=== PATIENT | male | born 1955 | race Caucasian/White ===

== ENCOUNTER 2016-11-01 10:39 | Day surgery (SDC) | payer BC ==
[~2016-11-01 10:39] MED LIST: Buffered Lidocaine 1% SYR 3ML* 3 ML/SYR SYRINGE INTRADERM ONE
[2016-11-01] MEDS ORDERED: Propofol* 10 MG/ML 20 ML BTL IV PUSH ONE (12:13)
[2016-11-01] MEDS ORDERED: Succinylcholine* 20 MG/ML 10 ML VIAL ONE (12:13)
[2016-11-01] MEDS ORDERED: Atracurium* 10 MG/ML 10 ML VIAL ONE (12:13)
[2016-11-01] MEDS ORDERED: fentaNYL* 50 MCG/ML 2 ML VIAL (100 MCG VIAL) ONE (12:13)
[2016-11-01] MEDS ORDERED: Midazolam* 1 MG/ML 5 ML VIAL (5 MG) ONE (12:13)
[2016-11-01] MEDS ORDERED: Ondansetron INJ* 2 MG/ML VIAL IV PRN (13:11)
[2016-11-01] MEDS ORDERED: DiMENhydriNATE IV* 50 MG/ML VIAL IV PUSH PRN (13:11)
[2016-11-01] MEDS ORDERED: fentaNYL* 50 MCG/ML 2 ML VIAL (100 MCG VIAL) IV PRN (13:11)
[2016-11-01] MEDS ORDERED: HYDROmorphone INJ* 1 MG/ML CARPUJECT SYRINGE IV PRN (13:11)
[2016-11-01] MEDS ORDERED: Ibuprofen PED LIQ* 100 MG/5 ML UDC ONE (13:52)
[2016-11-01 14:05] VITALS: BP 139/100
--- NOTE | 2016-11-02 04:38 | PRO ---
PROCEDURE REPORT: DATE OF PROCEDURE: 11/01/16 [facility] PROCEDURE: EGD. INDICATION: Dysphagia, pharyngoesophageal trauma, Zenker's diverticulum, I was asked by the patient's ENT surgeon to scope the patient and prior to his surgery and leave behind a guidewire. MEDICATIONS GIVEN: Per the anesthesia staff. DESCRIPTION OF THE PROCEDURE: After the EGD procedure including the risks, benefits, and alternatives, not limited to perforation, surgery, and/or were explained to Mr. Berrios, written consent was then obtained. Medication was given by the anesthesia staff and a bite block was placed between the teeth. An Olympus gastroscope was then inserted into the patient's mouth, advanced down the esophagus, into the stomach, and into the distal duodenum. Intubating his upper esophageal sphincter was slightly difficult. The patient does have a very small mouth and he already had an endotracheal tube in place. I was able to gently tease the scope into the back of the patient's mouth and down to his epiglottis. I was able to find the lumen of the patient's upper esophageal sphincter and intubate it. The scope was advanced down the esophagus , into the stomach, into the duodenal bulb. No abnormalities were seen. I then used an ERCP wire, placed it through the scope with the blunt, soft, flexible end first and placed it in the lumen of the patient's stomach. I then slowly withdrew the scope and slightly advanced to the guidewire. The scope was withdrawn from the patient. The guidewire was left in place and was taped to the side of the patient's face at the request of the surgical staff. The patient tolerated the procedure well and returned over to the care of the anesthesiologist and the surgical staff. IMPRESSION: 1. Complete upper endoscopy into the duodenum with placement of guidewire. 2. Normal upper endoscopy. 3. Placement of guidewire into the patient's stomach to be used by the surgical staff. [id number]/[facility] #: [id number] MANUEL
--- NOTE | 2016-11-02 04:47 | OP ---
DATE OF OPERATION: 11/01/16 DATE OF : 59 SURGEON: Kurt Dos Santos MD. MARINE STEAMFITTER: Lobo Fuller MD ANESTHESIOLOGIST: Major Oliver MD The patient was brought to the operating room for an EGD by Dr. Fuller and followed by endoscopic stapling of his Zenker's diverticulum. The patient had a significant amount of trismus with difficult intubation, even difficulty with the esophagoscopy with a flexible scope per Dr. Fuller, and I did not feel that I could safely insert a diverticuloscope into his mouth without severe risk of breaking off some teeth; and, therefore, that portion of the procedure was aborted. [id number]/[facility] #: [id number] MTDD
== END 2016-11-01 14:44 | disposition home or self-care (01) ==
LOC: OR 10:39
PROVIDERS: ATTEND Otolaryngology
DX: K22.5 Diverticulum of esophagus, acquired (principal); K21.9 Gastro-esophageal reflux disease without esophagitis
CPT/HCPCS: J0330; J2250; J2704; J3010

== ENCOUNTER 2018-09-07 07:08 | Emergency (ER) | payer BC ==
[2018-09-07 07:21] VITALS: BP 164/88
--- NOTE | 2018-09-07 07:52 | ED ---
Back Pain - HPI Summary HPI Summary: 62 yo white male presents with left sided LBP that started 3 days ago after a work out at the gym. Pain does not radiates, denies numbness and tingling. Not better with ibuprofen. Pain severity started at 2-3, and goes up to 5-6 with ambulation. Denies any urinary sx - History of Current Complaint Chief Complaint: UCBackPain Stated Complaint: BACK PAIN Time Seen by Provider: 09/07/18 07:27 Hx Obtained From: Patient Onset/Duration: Sudden Onset, Lasting Days Onset/Duration: Started Days Ago Timing: Intermittent Severity Initially: Moderate Severity Currently: Moderate Pain Intensity: 4 Character: Throbbing, Stiffness Aggravating Symptom(s): Movement, Lifting, Bending, Walking - Allergies/Home Medications Allergies/Adverse Reactions: Allergies Allergy/AdvReac Type Severity Reaction Status Date / Time No Known Allergies Allergy Verified 09/07/18 07:20 Home Medications: Home Medications Acetaminophen 650 mg PO ONCE PRN 09/07/18 [History Confirmed 09/07/18] Cyanocobalamin (Vitamin B-12) [Vitamin B-12] 1,000 mcg PO DAILY 09/07/18 [ History Confirmed 09/07/18] Ibuprofen 800 mg PO ONCE PRN 09/07/18 [History Confirmed 09/07/18] PMH/Surg Hx/FS Hx/Imm Hx GI History: Reports: Hx Gastroesophageal Reflux Disease, Hx Hiatal Hernia, Other GI Disorders - Zenker's diverticulum Sensory History: Reports: Hx Contacts or Glasses - reading Denies: Hx Hearing Aid Opthamlomology History: Reports: Hx Contacts or Glasses - reading - Cancer History Hx Chemotherapy: No - Surgical History Surgery Procedure, Year, and Place: tonsillectomy 12-13 years old Hx Anesthesia Reactions: No Infectious Disease History: No Infectious Disease History: Denies: Traveled Outside the [place] in Last 30 Days - Social History Alcohol Use: Occasionally Substance Use Type: Reports: None Smoking Status (MU): Light Every Day Tobacco Smoker Type: eCigarettes Amount Used/How Often: vapes every day Review of Systems Constitutional: Negative Eyes: Negative ENT: Negative Cardiovascular: Negative Respiratory: Negative Gastrointestinal: Negative Genitourinary: Negative Musculoskeletal: Other - see HPI Skin: Negative Neurological: Negative All Other Systems Reviewed And Are Negative: Yes Physical Exam - Summary Physical Exam Summary: Appearance: Positive: Well-Appearing Skin: Positive: Warm Head/Face: Positive: Normal Head/Face Inspection Eyes: Positive: EOMI, MALATHI ENT: Positive: Hearing grossly normal, Pharynx normal, TMs normal Neck: Positive: Supple, No Lymphadenopathy Respiratory/Lung Sounds: Positive: Clear to Auscultation Cardiovascular: Positive: RRR, S1, S2 Abdomen Description: Positive: Nontender, Soft Musculoskeletal: Positive: Left paraspinal muscle tenderness in left upper buttock and L4-5 region without radiculopathy Neurological: Positive: CN Intact II-III Psychiatric:Positive: Normal Vital Signs On Initial Exam: Initial Vitals Temp Pulse Resp BP Pulse Ox 36.8 C 71 18 164/88 99 09/07/18 07:15 09/07/18 07:15 09/07/18 07:15 09/07/18 07:15 09/07/18 07:15 Diagnostics - Vital Signs Vital Signs Temp Pulse Resp BP Pulse Ox 09/07/18 07:15 36.8 C 71 18 164/88 99 - Laboratory Lab Results: Lab Results 09/07/18 Range/Units 07:36 POC Urine Color Yellow POC Urine Clarity Clear POC Urine pH 7.0 (5-9) POC Ur Specif [place] 1.010 (1.010-1.030) POC Urine Protein Negative (Negative) POC Ur Glucose (UA) Negative (Negative) POC Urine Ketones Negative (Negative) POC Urine Blood Negative (Negative) POC Urine Nitrite Negative (Negative) POC Urine Bilirubin Negative (Negative) POC Urine Urobilinogen 0.2 (Negative) POC U Leukocyte Esteras Negative (Negative) Lab Statement: Any lab studies that have been ordered have been reviewed, and results considered in the medical decision making process. Back Pain Course/Dx - Course Assessment/Plan: LBP- XR of lumbar spine neg for fx but disc narrowing in L1-2 and 2-3, spondylosis. Naproxen, refrain from back excercises x 1 week - Diagnoses Provider Diagnoses: Muscle spasm of back Discharge - Sign-Out/Discharge Documenting (check all that apply): Patient Departure All imaging exams completed and their final reports reviewed: Yes - Discharge Plan Condition: Stable Disposition: HOME Prescriptions: Naproxen [Naproxen 500 mg tab] 500 mg PO BID PRN 10 Days #20 tablet.dr BELLAMY Reason: Pain Patient Education Materials: Muscle Spasm (ED) Referrals: En Silva MD [Primary Care Provider] - Additional Instructions: as tolerated, NO back excercises for one week - Billing Disposition and Condition Condition: STABLE Disposition: Home
== END 2018-09-07 08:29 | disposition home or self-care (01) ==
LOC: UCEAST 07:08
DX: M62.830 Muscle spasm of back (principal); F17.210 Nicotine dependence, cigarettes, uncomplicated
CPT/HCPCS: 72110; 81003; 99212; G0463

== ENCOUNTER 2019-06-23 06:38 | Inpatient (IN) | payer BC ==
[~2019-06-23 06:38] MED LIST changes: -Buffered Lidocaine 1% SYR 3ML* 3 ML/SYR SYRINGE INTRADERM ONE; +Buffered Lidocaine 1% SYRIN* 1 ML/SYRINGE INTRADERM ONE
[2019-06-23] MEDS: Lactated Ringers 1000 ML Bag* 1,000 ML IV SCH ×3 (08:20→17:04)
[2019-06-23] MEDS ORDERED: Succinylcholine* 20 MG/ML 10 ML VIAL ONE (08:34)
[2019-06-23] MEDS ORDERED: ceFAZolin 2 GM in NS PREMIX(*) 2 GM/100 ML BAG IVPB ONE (08:34)
[2019-06-23] MEDS ORDERED: Propofol* 10 MG/ML 20 ML BTL ONE (08:34)
[2019-06-23] MEDS ORDERED: Lidocaine 2% PF * 5 ML VIAL ONE (08:34)
[2019-06-23] MEDS ORDERED: fentaNYL* 50 MCG/ML 2 ML VIAL (100 MCG VIAL) ONE (08:36)
[2019-06-23] MEDS ORDERED: Lidocaine 4% TOPICAL* 50 ML TOP.SOLN ONE (08:36)
[2019-06-23] MEDS ORDERED: Midazolam* 1 MG/ML 2 ML VIAL (2 MG) ONE (08:36)
[2019-06-23] MEDS ORDERED: Oxymetazoline 0.05% NASAL SPR* 15 ML BTL ONE (08:36)
[2019-06-23] MEDS ORDERED: EPINEPHRINE 1 MG/ML 1 ML VIAL ONE (08:36)
[2019-06-23] MEDS ORDERED: Lidocaine 1% w EPI 1:100,000* MDV 20 ML VIAL ONE ×2 (08:37→09:47)
[2019-06-23] MEDS ORDERED: Rocuronium* 10 MG/ML VIAL ONE (08:56)
[2019-06-23] MEDS ORDERED: metroNIDAZOLE IV 500 MG/100ML* 500 MG/100 ML BAG IVPB ONE (09:00)
[2019-06-23] MEDS ORDERED: Metoclopramide IV* 5 MG/ML 2 ML VIAL ONE (09:04)
[2019-06-23] MEDS ORDERED: Dexamethasone IV* 4 MG/ML 1 ML (4 MG) ONE (09:04)
[2019-06-23] MEDS ORDERED: Ondansetron INJ* 2 MG/ML VIAL ONE (09:04)
[2019-06-23] MEDS ORDERED: Ketorolac INJ* 30 MG/ML 1 ML VIAL ONE (09:04)
[2019-06-23] MEDS ORDERED: Remifentanil* 2 MG VIAL ONE (09:07)
[2019-06-23] MEDS ORDERED: Acetaminophen TAB* 325 MG PO PRN (09:22)
[2019-06-23] MEDS ORDERED: DiMENhydriNATE IV* 50 MG/ML VIAL IV PUSH PRN (09:22)
[2019-06-23] MEDS ORDERED: Naloxone* 0.4 MG/ML 1 ML VIAL IV PRN (09:22)
[2019-06-23] MEDS ORDERED: oxyCODONE TAB* 5 MG TAB PO PRN (09:22)
[2019-06-23] MEDS ORDERED: fentaNYL* 50 MCG/ML 2 ML VIAL (100 MCG VIAL) IV PRN (09:22)
[2019-06-23] MEDS ORDERED: EPHEDrine (Pressors)* 50 MG/ML VIAL ONE (09:40)
[2019-06-23] MEDS ORDERED: Bacitracin OINTMENT* 0.5% 0.5 oz TUBE ONE (11:34)
[2019-06-23] MEDS ORDERED: HYDROmorphone INJ1* 1 MG/ML SYRINGE ONE (12:15)
[2019-06-23] MEDS ORDERED: Labetalol IV* 5 MG/ML 20 ML VIAL ONE (12:45)
[2019-06-23] MEDS ORDERED: Naloxone* 0.4 MG/ML 1 ML VIAL ONE (12:53)
[2019-06-23] MEDS ORDERED: hydrALAZINE IV* 20 MG/ML VIAL ONE (13:22)
[2019-06-23] MEDS ORDERED: Ondansetron INJ* 2 MG/ML VIAL IV PRN (14:19)
[2019-06-23] MEDS ORDERED: oxyCODONE ORAL.SOLN* 5 MG/5 ML UDC PRN (14:19)
[2019-06-23] MEDS ORDERED: Ondansetron ODT TAB* 4 MG PO PRN (14:20)
[2019-06-23] MEDS: Morphine INJ* 2 MG/ML 1 ML SYRINGE (TWO MG - NEW SYRINGE VERSION) IV PRN ×2 (14:38→21:17)
[2019-06-23 15:05] LABS: Hematocrit 49 % (42-52); Hemoglobin 16.4 g/dL (14.0-18.0); Mean Corpuscular HGB Conc 33 g/dL (31-36); Mean Corpuscular Hemoglobin 32 pg (27-31); Mean Corpuscular Volume 95 fL (80-94); Mean Platelet Volume 8.7 fL (7.4-10.4); Platelet Count 172 10^3/uL (150-450); Red Blood Count 5.16 10^6 /uL (4.18-5.48); Red Cell Distribution Width 13 % (10-15); White Blood Count 14.7 10^3/uL (3.5-10.8)
--- NOTE | 2019-06-23 15:32 | PN ---
PROGRESS NOTE: DATE OF SERVICE: 06/23/19 HISTORY: The patient underwent an excision of a Zenker's diverticulum and cricopharyngeal myotomy. This was an open procedure through the neck. During the myotomy, an opening was seen through the esophageal mucosa into the esophagus. This was oversewn and then sealed off with some Tisseel, but this does put him at high risk for infection which can travel down into the mediastinitis and cause devastating complication. Therefore, an NG tube was placed through his nose at the end of the procedure and we are admitting him for observation for risk of infection and to begin tube feeds. He will spend the first night in the ICU. I have spoken to the hospitalist. We are going to give him a couple more doses of intravenous antibiotics. I also spoke to the life skills worker about getting the tube feed started. [id number]/[facility] #: [id number] MANUEL
--- NOTE | 2019-06-23 15:42 | CONSULT ---
Consult Consult: Consultation Note -- Critical Care Requesting Physician: Dr Dos Santos Reason for consult: airway monitoring Limitations in history/physical: none Date of consult: 06/23/2019 HPI: 63y M w/pmhx of GERD, Zenkers Diverticulum; patient comes for elective surgery for stappling of zenkers diverticulum. Today he is s/p stappling via left approach. NO significant intraop events noted. Post op he is in ICU, left LEONCIO drain+. Mild pain+. No change in breathing, no stridor. Some soreness in swallowing. Afebrile, HR 80s, BP 130-150s. ED/floor Course: as above ROS: negative except for pertinent positives mentioned above PMHx: GERD, Zenkers Diverticulum PSHx: tonsillectomy Family History: heart disease, hearing loss Social History: Alcohol-occassional, Smoking-denies, Drug use-denies; Job- civil attorney Allergies: Allergies Allergy/AdvReac Type Severity Reaction Status Date / Time No Known Allergies Allergy Verified 06/23/19 07:36 Home Medications: Omeprazole 20 mg PO QAM 06/07/13 [History Confirmed 06/23/19] Krill Oil 1 tab PO QAM 10/25/16 [History Confirmed 06/23/19] Multivitamin [Multivitamins] 1 cap PO QAM 10/25/16 [History Confirmed 06/23/19] Tamoxifen TAB* [Nolvadex 10 MG*] 20 mg PO WEEKLY 10/25/16 [History Confirmed 06/03] Cyanocobalamin (Vitamin B-12) [Vitamin B-12] 1,000 mcg PO QAM 09/07/18 [History Confirmed 06/23/19] Bio-Identical Hormone Replacem 1 dose .SEE ORDER SEE INSTRUCTIONS 09/23/18 [ History Confirmed 06/23/19] Ibuprofen [Ibu-200] 800 mg PO BID PRN 03/23/19 [History Confirmed 06/23/19] Naproxen Sodium [Aleve] 220 mg PO BID PRN 03/23/19 [History Confirmed 06/23/19] 5-Hydroxytryptophan (5-Htp) [5-Htp] 100 mg PO QAM 06/22/19 [History Confirmed ] 7-Keto Dhea 2 tab PO QAM 06/22/19 [History Confirmed 06/23/19] Ascorbic Acid TAB* [Vitamin C TAB*] 500 mg PO QAM 06/22/19 [History Confirmed 06/23/19] Loratadine/Pseudoephedrine [Claritin-D 12 Hour] 1 tab PO ONCE PRN 06/22/19 [ History Confirmed 06/23/19] Tele: NSR Vitals: Vital Signs Temp 98.4 F 06/23/19 13:55 Pulse 80 06/23/19 15:15 Resp 18 06/23/19 15:15 BP 168/92 06/23/19 15:15 Pulse Ox 94 06/23/19 15:15 Intake & Output 06/22/19 06/23/19 06/23/19 18:59 06:59 18:59 Output Total 400 Balance -400 Weight 86.636 kg Output: Urine 400 O2/Vent: NC Infusions: heplock Current Medications: Acetaminophen (Tylenol Adult Liq*) 650 mg G TUBE Q4H PRN PRN Reason: PAIN - MILD Lactated Ringer's (Lactated Ringers 1000 Ml Bag*) 1,000 mls @ 125 mls/hr IV PER RATE [facility] Last Admin: 06/23/19 14:38 Dose: 125 mls/hr Cefazolin Sodium 1 gm/ Sodium (Chloride) 50 mls @ 200 mls/hr IVPB Q8H [facility] Metronidazole/Sodium Chloride (Flagyl 500 Mg Ivpb*) 500 mg in 100 mls @ 100 mls /hr IVPB Q8H [facility] Ibuprofen (Motrin Liq Adult*) 800 mg G TUBE Q8H PRN PRN Reason: PAIN - MILD Lansoprazole (Lansoprazole Susp* Oralsyr) 30 mg G TUBE DAILY [facility] Morphine Sulfate (Morphine Inj (Syringe))*) 2 mg IV Q2H PRN PRN Reason: PAIN - MODERATE Last Admin: 06/23/19 14:38 Dose: 2 mg Ondansetron HCl (Zofran Inj*) 8 mg IV Q6H PRN PRN Reason: NAUSEA/VOMITING Ondansetron HCl (Zofran Odt Tab*) 4 mg PO Q6H PRN PRN Reason: NAUSEA/VOMITING Oxycodone HCl (Oxycodone Oral.Soln*) 5 mg .SEE ORDER Q4H PRN PRN Reason: PAIN - MILD Oxycodone HCl (Oxycodone Oral.Soln*) 10 mg .SEE ORDER Q4H PRN PRN Reason: PAIN - MODERATE Physical Exam: Constitutional: awake, alert, no distress, no diaphoresis Head: normocephalic, atraumatic Eyes: no pallor, no icterus ENT: moist mucous membranes Neck: soft, supple, no jvd, no stridor; left LEONCIO+; surgical site intact+ CVS: normal rate, regular, no murmur Chest/Resp: bilateral air entry, no rhales, no wheeze, no rhonchi, no acc muscle use Abdomen/GI: soft, nontender, nondistended, BS+ Ext/Msk: warm, pulses+, no edema Skin: intact, warm Neuro: awake, alert, orientedx3, moving all extremities, no gross focal deficit Psych: normal affect Labs: Laboratory Results - last 24 hr 06/23/19 14:54 WBC 14.7 H RBC 5.16 Hgb 16.4 Hct 49 MCV 95 H MCH 32 H MCHC 33 RDW 13 Plt Count 172 MPV 8.7 Imaging: cr 06/23 - NGT in stomach+ Assessment: 63y M w/pmhx of GERD, Zenkers Diverticulum; patient comes for elective surgery for stappling of zenkers diverticulum. Today he is s/p stappling via left approach. NO significant intraop events noted. Post op he is in ICU, left LEONCIO drain+. Mild pain+. No change in breathing, no stridor. Some soreness in swallowing. Afebrile, HR 80s, BP 130-150s. -Zenkers diverticulum s/p open stappling - 06/23 -GERD Plan: Neuro- -Delirium prec; avoid BDZ CVS- -BP and HR stable -ordered for LR 125cc/hr -Maintain MAP>65 Resp- -NC, no distress -CXR 06/23 without focal process; NGT in place -monitor for stridor -monitor for swelling or bleeding from NGT -Wean Fio2 to keep sat>92% -Bronchodilators PRN, Aspiration prec -discussed plan with ENT; airway monitorign overnight; plan for possible discharge tomorrow if stable, no fevers or resp issues. ID- [email or web address] 14 post op. -start post op abx ancef and flagyl GI- -NPO -NGT in place -nutrition consult for home TF; plan to start tomorrow -GI prophylaxis - lansoprazole via ngt Renal- -LR infusion 125cc/hr -strict I/O, replete to keep K>4, Mg>2 -gonzalez as indicated Heme- monitor for bleeding from LEONCIO site Endo- Maintain BG<200, insulin protocol as needed Musculsk- pressure ulcer prophylaxis. Bedrest. Wounds- none Nutrition- NPO today DVT prophylaxis: SCD GI prophylaxis: ppi Central Line: no Arterial Line: no Gonzalez Cathetor: no Disposition: Patient requires Critical Care/ICU for for airway monitoring Patient Clinical Status: stable Code Status: full code Christophe Stout MD Engraver Machine (Electronically Signed)
[2019-06-23 15:43] LABS: ALT 29 U/L (7-52); Albumin 3.9 g/dL (3.2-5.2); Albumin/Globulin Ratio 1.9 (1-3); Alkaline Phosphatase 45 U/L (34-104); BUN/Creatinine Ratio 14.1 (8-20); Blood Urea Nitrogen 19 mg/dL (6-24); CO2 Carbon Dioxide 23 mmol/L (22-32); Calcium 8.9 mg/dL (8.6-10.3); Chloride 109 mmol/L (101-111); EGFR Non-African American 53.7 (>60); Globulin 2.1 g/dL (2-4); Glucose 133 mg/dL (70-100); Phosphorus 2.9 mg/dL (2.5-5.0); Sodium 140 mmol/L (135-145)
[2019-06-23] MEDS: Acetaminophen ADULT LIQ* 650 MG/20.3 ML UDC G TUBE PRN ×2 (15:49→21:33)
[2019-06-23 16:00] LABS: Anion Gap 8 mmol/L (2-11)
[2019-06-23] MEDS ORDERED: ceFAZolin 1 GM ADVAN(*) 1 GM in NS 0.9% 50 ML* 50 ML IVPB SCH (16:00)
[2019-06-23 17:09] LABS: ABS Lymphocytes 0.4 10^3/ul (1.0-4.8); ABS Monocytes 0.3 10^3/ul (0-0.8); Eosinophil % 0.1 %; Lymphocyte % 2.7 %
[2019-06-23] MEDS: metroNIDAZOLE IV 500 MG/100ML* 500 MG/100 ML BAG IVPB SCH (17:44)
[2019-06-23] MEDS ORDERED: NS 0.9% 500 ML* 500 ML IV ONE (18:18)
[2019-06-23] MEDS: oxyCODONE ORAL.SOLN* 5 MG/5 ML UDC PRN ×2 (19:12→23:45)
[2019-06-23 19:38] LABS: Potassium Redraw 4.5 mmol/L (3.5-5.0)
--- NOTE | 2019-06-23 21:55 | OP ---
DATE OF OPERATION: 06/23/19 - [facility] DATE OF : 59 SURGEON: Kurt Dos Santos MD PRE-OP DIAGNOSIS: Zenker's diverticulum. POST-OP DIAGNOSIS: Zenker's diverticulum. OPERATIVE PROCEDURE: Initially an attempt at endoscopic stapling of Zenker's diverticulum, which we were not able to perform; therefore, an open excision of Zenker's diverticulum with cricopharyngeal myotomy was performed under general endotracheal anesthesia. COMPLICATIONS: He had a small esophageal opening, which was oversewed. DISPOSITION: Good. ESTIMATED BLOOD LOSS: 20 mL. DRAINS: LEONCIO drain x1. DESCRIPTION OF PROCEDURE: The patient was taken to the operating room and placed in the supine position on the operating table. General anesthesia was induced and he was orotracheally intubated. Initially, we attempted an endoscopic stapling of the Zenker's diverticulum, put a tooth guard on his upper teeth and unfortunately with multiple attempts at trying to cannulate the Zenker's by following a NG tube into the esophagus using a side to try to get his mouth open. His trismus was too significant to allow us to get the diverticuloscope deep enough to allow us to do the endoscopic stapling; therefore, he was converted to an open neck surgery for excision of the Zenker' s. A bougie was placed through his mouth into the esophagus. His head was extended and he was prepped with Betadine, draped in a sterile fashion and an incision was demarcated just over the cricoid cartilage, injected with 1% lidocaine with 1:100,000 epinephrine. Incision was made through the skin and platysma muscle. Inferior, superior and subplatysmal planes were elevated. The dissection was taken down over the surface of the strap muscles. The omohyoid muscle was found. It was transected to allow us access into the neck at the level of the esophagus. By palpating the bougie, taking it out and putting it back in, we were able to identify where the esophagus was and with some blunt dissection with bipolar, we were able to identify the Zenker's diverticulum. We dissected this out to its stalk into the esophagus. There was no way to get a stapler in there, so we used a 2-0 silk suture ligature to secure the suture in place, cross-clamped and then tied off the Zenker's diverticulum and removed it and sent it to Pathology. The myotomy was made with a 15-blade by pulling the cricopharyngeus muscle. Did notice a very small pinpoint opening by seeing the bougie through the esophageal mucosa and this was oversewed with a 3-0 Vicryl. Because that after the bougie was removed, we placed a NG tube and sutured it to the septum for later tube feeds. The wound was irrigated with copious normal saline. Hemostasis was ensured. Some Tisseel was placed deep in the neck over where the Zenker's was removed and the esophageal perforation had been formed. The skin was closed with 3-0 deep dermal Vicryl and a running subcuticular 4-0 Prolene, Mastisol and Steri- Strips. A #7 LEONCIO drain had been placed and sutured in place. The patient tolerated this well. He was extubated uneventfully and transferred to the recovery room in stable condition. [id number]/[facility] #: [id number] MANUEL
[2019-06-23] MEDS ORDERED: Melatonin 3 MG TAB PO ONE ×2 (23:32→23:45)
[2019-06-23] MEDS: ceFAZolin* 2 GM* Q8H (Duplex) IVPB SCH (23:35)
[2019-06-24] MEDS ORDERED: ceFAZolin VIAL(*) 2 GM in NS 0.9% 100 ML* 100 ML IVPB SCH ×2
[2019-06-24] MEDS: metroNIDAZOLE IV 500 MG/100ML* 500 MG/100 ML BAG IVPB SCH ×3 (02:06→17:51)
[2019-06-24] MEDS: Acetaminophen ADULT LIQ* 650 MG/20.3 ML UDC G TUBE PRN ×2 (02:58→08:04)
[2019-06-24] MEDS: Lactated Ringers 1000 ML Bag* 1,000 ML IV SCH ×2 (05:00→21:05)
[2019-06-24] MEDS: Lansoprazole SUSP* ORALSYR 3 MG/ML G TUBE SCH (08:03)
[2019-06-24] MEDS: ceFAZolin* 2 GM* Q8H (Duplex) IVPB SCH ×3 (08:04→23:47)
--- NOTE | 2019-06-24 08:39 | PN ---
PROGRESS NOTE: DATE OF VISIT: 06/24/19 HISTORY: The patient is postop day 1 from his excision of a Zenker's diverticulum. I spoke to him and his nurse. He seems to be doing quite well. He had some pain, primarily earlier in the evening. He has only had Tylenol since about 4 o'clock. He is in good spirits, does not have any significant complaints this morning. His temperature has been running about 100. His LEONCIO has put out 15 mL over the past 2 emptyings through the night, and for a total of 30 mL. Before that, immediately postoperatively it had put out 25 mL. It is serous this morning on inspection. Wound is clean and intact, no evidence of swelling. ASSESSMENT: The patient is doing well postop day #1. They can start and advance the tube feeds. I think it is too soon to pull the drain. There is no evidence of infection setting in at this time. The hope would be to be able to let him go home tomorrow, pull the drain prior to discharge, with tube feeds advanced and any home care needs addressed. [id number]/[facility] #: [id number] MANUEL
[2019-06-24] MEDS ORDERED: Lansoprazole SOLUTAB* 30 MG G TUBE SCH (09:00)
[2019-06-24] MEDS: oxyCODONE ORAL.SOLN* 5 MG/5 ML UDC PRN (10:37)
--- NOTE | 2019-06-24 11:37 | PN ---
Progress Note - Progress Note Date of Service: 06/24/19 Note: Progress Note -- Critical Care 24 hour events -awake, alert; no distress -had episode of sinus jorge yesterday but resolved on its own; symptomatic and BP 80s and recovered; unclear if from pain -tmax 101 this morning -LEONCIO in place, 55cc output -making urine -mild pain; NGT in place Tele: NSR Vitals: Vital Signs Temp 101 F 06/24/19 11:13 Pulse 88 06/24/19 09:01 Resp 16 06/24/19 10:37 BP 134/72 06/24/19 09:00 Pulse Ox 97 06/24/19 09:01 Intake & Output 06/23/19 06/24/19 06/24/19 18:59 06:59 18:59 Intake Total 100 2149 Output Total 825 930 800 Balance -725 1219 -800 Weight 86.6 kg 86.689 kg Intake: IV Fluids 1645 LR 1139 NS (0.9%) 506 IVPB 314 LR 110 NS (0.9%) 204 Tube Feeding Flush Amount 100 120 NG Tube Irrigate Amount 70 Output: LEONCIO #1 25 30 Urine 800 900 800 O2/Vent: NC 2 Infusions: LR 75 Current Medications: Acetaminophen (Tylenol Adult Liq*) 650 mg G TUBE Q4H PRN PRN Reason: PAIN - MILD Last Admin: 06/24/19 08:04 Dose: 650 mg Metronidazole/Sodium Chloride (Flagyl 500 Mg Ivpb*) 500 mg in 100 mls @ 100 mls /hr IVPB Q8H [facility] Last Admin: 06/24/19 10:28 Dose: 100 mls/hr Lactated Ringer's (Lactated Ringers 1000 Ml Bag*) 1,000 mls @ 75 mls/hr IV PER RATE [facility] Last Admin: 06/24/19 05:00 Dose: 75 mls/hr Cefazolin Sodium/Dextrose (Kefzol 2 Gm Premix In Ors(*)) 2 gm in 50 mls @ 100 mls/hr IVPB Q8H [facility] Last Admin: 06/24/19 08:04 Dose: 100 mls/hr Ibuprofen (Motrin Liq Adult*) 800 mg G TUBE Q8H PRN PRN Reason: PAIN - MILD Lansoprazole (Lansoprazole Susp* Oralsyr) 30 mg G TUBE DAILY [facility] Last Admin: 06/24/19 08:03 Dose: 30 mg Morphine Sulfate (Morphine Inj (Syringe))*) 2 mg IV Q2H PRN PRN Reason: PAIN - MODERATE Last Admin: 06/23/19 21:17 Dose: 2 mg Ondansetron HCl (Zofran Inj*) 8 mg IV Q6H PRN PRN Reason: NAUSEA/VOMITING Last Admin: 06/23/19 18:21 Dose: 8 mg Ondansetron HCl (Zofran Odt Tab*) 4 mg PO Q6H PRN PRN Reason: NAUSEA/VOMITING Oxycodone HCl (Oxycodone Oral.Soln*) 5 mg .SEE ORDER Q4H PRN PRN Reason: PAIN - MILD Last Admin: 06/24/19 10:37 Dose: 5 mg Oxycodone HCl (Oxycodone Oral.Soln*) 10 mg .SEE ORDER Q4H PRN PRN Reason: PAIN - MODERATE Physical Exam: Constitutional: awake, alert, no distress, no diaphoresis Head: normocephalic, atraumatic Eyes: no pallor, no icterus ENT: moist mucous membranes Neck: soft, supple, no jvd, no stridor; left LEONCIO+; surgical site intact+ CVS: normal rate, regular, no murmur Chest/Resp: bilateral air entry, no rhales, no wheeze, no rhonchi, no acc muscle use Abdomen/GI: soft, nontender, nondistended, BS+ Ext/Msk: warm, pulses+, no edema Skin: intact, warm Neuro: awake, alert, orientedx3, moving all extremities, no gross focal deficit Psych: normal affect Labs: Laboratory Results - last 24 hr 06/23/19 06/23/19 06/23/19 14:54 14:54 17:54 WBC 14.7 H RBC 5.16 Hgb 16.4 Hct 49 MCV 95 H MCH 32 H MCHC 33 RDW 13 Plt Count 172 MPV 8.7 Neut % (Auto) 94.9 Lymph % (Auto) 2.7 Merrick % (Auto) 2.2 Eos % (Auto) 0.1 Baso % (Auto) 0.1 Absolute Neuts (auto) 14.0 H Absolute Lymphs (auto) 0.4 L Absolute Monos (auto) 0.3 Absolute Eos (auto) 0.0 Absolute Basos (auto) 0.0 Absolute Nucleated RBC 0.0 Nucleated RBC % 0.0 Sodium 140 Potassium TNP 4.5 Chloride 109 Carbon Dioxide 23 Anion Gap 8 BUN 19 Creatinine 1.35 H Est GFR ( Amer) 65.0 Est GFR (Non-Af Amer) 53.7 BUN/Creatinine Ratio 14.1 Glucose 133 H Calcium 8.9 Phosphorus 2.9 Magnesium 2.0 Total Bilirubin 0.60 AST TNP 38 ALT 29 Alkaline Phosphatase 45 Total Protein 6.0 L Albumin 3.9 Globulin 2.1 Albumin/Globulin Ratio 1.9 Imaging: cr 06/23 - NGT in stomach+ Assessment: 63y M w/pmhx of GERD, Zenkers Diverticulum; patient comes for elective surgery for stappling of zenkers diverticulum. Today he is s/p stappling via left approach. NO significant intraop events noted. Post op he is in ICU, left LEONCIO drain+. Mild pain+. No change in breathing, no stridor. Some soreness in swallowing. Afebrile, HR 80s, BP 130-150s. -Zenkers diverticulum s/p open stappling - 06/23 -GERD Plan: Neuro- -Delirium prec; avoid BDZ CVS- -BP and HR stable -LR 75cc/hr -Maintain MAP>65 Resp- -NC, no distress -CXR 06/23 without focal process; NGT in place -monitor for stridor -monitor for swelling or bleeding from LEONCIO -Wean Fio2 to keep sat>92% -Bronchodilators PRN, Aspiration prec ID- tmax 101. -on ancef 2gm q8h and flagyl 500q8h GI- -NPO -NGT in place; to start TF jevity 1.2 at 20cc/hr; goal 40cc/hr -plan for home TF likely via bolus feeding; Nutrition following -GI prophylaxis - lansoprazole via ngt Renal- -LR infusion 75cc/hr -strict I/O, replete to keep K>4, Mg>2 -gonzalez as indicated Heme- monitor for bleeding from LEONCIO site; hg stable Endo- Maintain BG<200, insulin protocol as needed Musculsk- pressure ulcer prophylaxis. oob to chair Wounds- none Nutrition- TF jevity 1.2 DVT prophylaxis: SCD GI prophylaxis: ppi Central Line: no Arterial Line: no Ognzalez Cathetor: no Disposition: plan for transfer to same day surgery Patient Clinical Status: stable Code Status: full code Christophe Stout MD Tile Power Shear Operator (Electronically Signed)
[2019-06-24] MEDS: Ibuprofen ADULT LIQ* 600 MG/30 ML UDC G TUBE PRN ×2 (15:17→23:47)
[2019-06-24] MEDS ORDERED: Dextran 70/Hypromellose Tears Eye Drops 15 ml BTL (for Artificials Tears) BOTH EYES PRN (17:20)
[2019-06-25] MEDS: metroNIDAZOLE IV 500 MG/100ML* 500 MG/100 ML BAG IVPB SCH ×2 (02:09→10:15)
[2019-06-25 06:55] LABS: Hematocrit 42 % (42-52); Hemoglobin 14.1 g/dL (14.0-18.0); Mean Corpuscular HGB Conc 34 g/dL (31-36); Mean Corpuscular Hemoglobin 32 pg (27-31); Mean Corpuscular Volume 95 fL (80-94); Mean Platelet Volume 8.6 fL (7.4-10.4); Platelet Count 147 10^3/uL (150-450); Red Cell Distribution Width 13 % (10-15); White Blood Count 9.6 10^3/uL (3.5-10.8)
[2019-06-25 07:08] LABS: BUN/Creatinine Ratio 11.9 (8-20); Calcium 8.4 mg/dL (8.6-10.3); EGFR African American 83.2 (>60); EGFR Non-African American 68.8 (>60); Potassium 3.8 mmol/L (3.5-5.0)
[2019-06-25] MEDS: ceFAZolin* 2 GM* Q8H (Duplex) IVPB SCH ×2 (07:57→15:25)
[2019-06-25] MEDS: Ibuprofen ADULT LIQ* 600 MG/30 ML UDC G TUBE PRN ×2 (07:58→15:28)
[2019-06-25] MEDS: Lansoprazole SUSP* ORALSYR 3 MG/ML G TUBE SCH (10:15)
--- NOTE | 2019-06-25 10:38 | PN ---
Subjective Date of Service: 06/25/19 Interval History: No acute issues overnight. LEONCIO drain was removed this morning by surgeon. NG tube in place. afebrile overnight. No chills. Objective Active Medications: Acetaminophen (Tylenol Adult Liq*) 650 mg G TUBE Q4H PRN PRN Reason: PAIN - MILD Last Admin: 06/24/19 08:04 Dose: 650 mg Artificial Tears (Natural Balance Tears Eye Drop) 1 drop BOTH EYES Q2H PRN PRN Reason: DRY EYE Last Admin: 06/24/19 18:15 Dose: 1 drop Metronidazole/Sodium Chloride (Flagyl 500 Mg Ivpb*) 500 mg in 100 mls @ 100 mls /hr IVPB Q8H [facility] Last Admin: 06/25/19 10:15 Dose: 100 mls/hr Lactated Ringer's (Lactated Ringers 1000 Ml Bag*) 1,000 mls @ 75 mls/hr IV PER RATE ELVA Last Admin: 06/24/19 21:05 Dose: 75 mls/hr Cefazolin Sodium/Dextrose (Kefzol 2 Gm Premix In Ors(*)) 2 gm in 50 mls @ 100 mls/hr IVPB Q8H [facility] Last Admin: 06/25/19 07:57 Dose: 100 mls/hr Ibuprofen (Motrin Liq Adult*) 800 mg G TUBE Q8H PRN PRN Reason: PAIN - MILD Last Admin: 06/25/19 07:58 Dose: 800 mg Lansoprazole (Lansoprazole Susp* Oralsyr) 30 mg G TUBE DAILY [facility] Last Admin: 06/25/19 10:15 Dose: 30 mg Morphine Sulfate (Morphine Inj (Syringe))*) 2 mg IV Q2H PRN PRN Reason: PAIN - MODERATE Last Admin: 06/23/19 21:17 Dose: 2 mg Ondansetron HCl (Zofran Inj*) 8 mg IV Q6H PRN PRN Reason: NAUSEA/VOMITING Last Admin: 06/23/19 18:21 Dose: 8 mg Ondansetron HCl (Zofran Odt Tab*) 4 mg PO Q6H PRN PRN Reason: NAUSEA/VOMITING Oxycodone HCl (Oxycodone Oral.Soln*) 5 mg .SEE ORDER Q4H PRN PRN Reason: PAIN - MILD Last Admin: 06/24/19 10:37 Dose: 5 mg Oxycodone HCl (Oxycodone Oral.Soln*) 10 mg .SEE ORDER Q4H PRN PRN Reason: PAIN - MODERATE Vital Signs - 8 hr 06/25/19 06/25/19 06/25/19 03:38 08:00 08:27 Temperature 98.2 F 98.5 F Pulse Rate 79 79 Respiratory 16 16 16 Rate Blood Pressure 156/78 134/65 (mmHg) O2 Sat by Pulse 94 94 94 Oximetry Oxygen Devices in Use Now: None Appearance: Sitting on bed, Not in distress. Eyes: PERRLA Ears/Nose/Mouth/Throat: Mucous Membranes Moist, - - NG tube in place. Respiratory: Symmetrical Chest Expansion and Respiratory Effort, Clear to Auscultation Cardiovascular: NL Sounds; No Murmurs; No JVD, RRR Abdominal: NL Sounds; No Tenderness; No Distention, No Hepatosplenomegaly Extremities: No Edema Skin: No Rash or Ulcers Neurological: Alert and Oriented x 3 Lines/Tubes/Other Access: Clean, Dry and Intact Naso-enteral Tube Result Diagrams: 06/25/19 06:23 06/25/19 06:23 Microbiology and Other Data: Microbiology 06/23/19 14:54 Nasal Screen MRSA (PCR) - Final Nasal Mrsa Not Detected Assess/Plan/Problems-Billing Assessment: - Patient Problems (1) Zenker diverticulum Current Visit: Yes Status: Acute Code(s): K22.5 - DIVERTICULUM OF ESOPHAGUS , ACQUIRED SNOMED Code(s): 330838258 Comment: status post elective surgery, stappling. doing well. LEONCIO drain removed today. NG tube in place. patient to see inbound sales representative today, additional plan/managment per ENT/primary team (2) Fever Current Visit: Yes Status: Acute Code(s): R50.9 - FEVER, UNSPECIFIED SNOMED Code(s): 976694955 Comment: improved, likley due to post-op, WBC trended downward. monitor. continue antibiotics: cefazolin, flagyl
[2019-06-25 12:12] VITALS: BP 135/82
--- NOTE | 2019-06-25 23:21 | DS ---
CC: Dr. Yakov Dos Santos; Dr. Brady; Dr. En Silva DISCHARGE SUMMARY: DATE OF ADMISSION: 06/23/19 DATE OF DISCHARGE: 06/25/19 PRIMARY SURGEON: Dr. Yakov Dos Santos. PRIMARY CARE PROVIDER: Dr. En Silva. HOSPITAL COURSE: This is a 63-year-old male with past medical history of GERD as well as Zenker's diverticulum. He was admitted to the hospital because of elective surgery for the Zenker's diverticulum. On 06/23/19, the patient underwent endoscopic straightening of the Zenker's diverticulum which they were not able to perform, so they did an open excision with cricopharyngeal myotomy under general anesthesia. Postop, the patient did develop fever as well as hypotension. All these symptoms had resolved. The patient is no longer hypotensive. No fever. The patient was given postop Flagyl as well as cefazolin. The patient was placed n.p.o. and had a nasogastric tube inserted and was started on Jevity for nutrition purposes. The patient also saw mineral ore processing labourer through the course for tube feed teaching as well as determining the goals of tube feeding. The patient had a LEONCIO drain that was placed which was then removed on 06/25/19. DISCHARGE CONDITION: Stable. DISCHARGE DISPOSITION: The patient to be discharged home. DISCHARGE INSTRUCTIONS: The patient is to be n.p.o., the patient had a printed instruction given to the patient for Jevity tube feed. The patient also needs 800 mL of free water every day. DISCHARGE MEDICATIONS: The patient's medications include: 1. Lansoprazole suspension 30 mg daily via the G-tube. 2. The patient was given p.r.n. ibuprofen per Dr. Brady. Prescription was sent by Dr. Brady. FOLLOWUP: The patient is to follow up with his primary care provider, Dr. En Silva, as well as the patient to see Dr. Yakov Dos Santos on 06/28/19. ADDITIONAL INSTRUCTIONS: The patient to return to the emergency room for any new issues that arise. PHYSICAL EXAMINATION: The patient's blood pressure is 135/82, heart rate of 16 , saturation of 93% on room air, temperature of 98.5, heart rate of 72. The patient is lying in bed in no acute distress. NG tube is in place. Heart: Regular rate and rhythm, no murmur. Lungs: Clear to auscultation with no wheezing, rales, or rhonchi. Abdomen: Bowel sounds are present. Normoactive, soft, nontender, nondistended. Radial pulses 2+ bilaterally. [id number]/[facility] #: [id number] [facility]
== END 2019-06-25 16:45 | disposition home or self-care (01) | DRG 220 ==
LOC: OR 06:38 → ICU 14:11 → SSU 06-24 21:45
PROVIDERS: ADMIT Otolaryngology; ATTEND Internal Medicine
PROC: 0K8 Muscles, Division (ICD-10-PCS; 2019-06-23)
PROC: 0DQ50ZZ Repair Esophagus, Open Approach (ICD-10-PCS; 2019-06-23)
PROC: 0DH67UZ Insertion of Feeding Device into Stomach, Via Natural or Artificial Opening (ICD-10-PCS; 2019-06-23)
PROC: 3E0G76Z Introduction of Nutritional Substance into Upper GI, Via Natural or Artificial Opening (ICD-10-PCS; 2019-06-23)
PROC: 0DB50ZZ Excision of Esophagus, Open Approach (ICD-10-PCS; principal; 2019-06-23 08:00)
DX: K22.5 Diverticulum of esophagus, acquired (principal); K21.9 Gastro-esophageal reflux disease without esophagitis; K22.4 Dyskinesia of esophagus; R13.14 Dysphagia, pharyngoesophageal phase; R50.82 Postprocedural fever; I95.81 Postprocedural hypotension; E29.1 Testicular hypofunction; Z82.49 Family history of ischemic heart disease and other diseases of the circulatory system; Z82.2 Family history of deafness and hearing loss; Z72.89 Other problems related to lifestyle
CPT/HCPCS: 36415; 71045; 80048; 80053; 83735; 84100; 85025; 85027; 87641; 88304; 93005; A9270-GY; C1776; J0330; J0360; J0690; J1100; J1170; J1885; J2250; J2270; J2310; J2405; J2704; J2765; J3010

== ENCOUNTER 2019-06-29 18:13 | Emergency (ER) | payer BC ==
[2019-06-29] MEDS ORDERED: Lidocaine 2% 10 ML* VIAL INJ ONE (19:01)
--- NOTE | 2019-06-29 19:14 | ED ---
Throat Pain/Nasal Congestion - HPI Summary HPI Summary: Patient is a 63 y/o M [facility]. The patient had open repair of Zenker's diverticulum 06/23/[address] Dos Santos at [facility]. NG tube was placed and later removed. Today, 06/29/19, patient had Esophageal X- ray with Barium swallow. There was minimal extravasation of barium, patient was subsequently directed to ED where Dr. Dos Santos came to place NG tube. In the room, patient notes minimal pain and states that he has been taking ibuprofen, with last dose at 1600 06/29/19. Patient denies difficulty swallowing, SOB, chest pain, nausea, MORENO, and dizziness. He denies allergies to medications. FMHx of throat cancer in brother is reported. PMHx of GERD, hiatal hernia, testicular hypofunction, arthritis noted. PSHx of endoscopic stapling of Zenker s diverticulum in 2016 at [facility]. On curriculum and assessment coordinator, nothing is noted to aggravate/ alleviate Sx. Home medications and allergies are reviewed. - History of Current Complaint Chief Complaint: EDGeneral Hx Obtained From: Patient, Medical Records, Other: - Dr. Dos Santos in person Onset/Duration: Still Present Severity: Mild Associated Signs And Symptoms: Positive: Negative Cough: None Related History: Other (Noted In Comments) - Zenker's diverticulum repair - Allergies/Home Medications Allergies/Adverse Reactions: Allergies Allergy/AdvReac Type Severity Reaction Status Date / Time No Known Allergies Allergy Verified 06/29/19 19:32 PMH/Surg Hx/FS Hx/Imm Hx Previously Healthy: No GI History: Reports: Hx Gastroesophageal Reflux Disease, Hx Hiatal Hernia, Other GI Disorders - Zenker's diverticulum History: Reports: Other Problems/Disorders - testicular hypofunction - takes bioidentical hormone replacement Musculoskeletal History: Reports: Hx Arthritis, Hx Back Problems Sensory History: Denies: Hx Contacts or Glasses, Hx Hearing Aid Opthamlomology History: Denies: Hx Contacts or Glasses - Cancer History Hx Chemotherapy: No - Surgical History Surgery Procedure, Year, and Place: tonsillectomy 12-13 years old. 2016 ENDOSCOPIC STAPLING OF THE ZENKERS DIVERTICULUM [facility] Hx Anesthesia Reactions: No Infectious Disease History: No Infectious Disease History: Denies: Traveled Outside the [place] in Last 30 Days - Family History Known Family History: Positive: Other - throat cancer, brother - Social History Alcohol Use: Daily Alcohol Amount: 1 glass of wine per day Substance Use Type: Reports: None Smoking Status (MU): Never Smoked Tobacco Type: eCigarettes Amount Used/How Often: vapes every day Have You Smoked in the Last Year: No Review of Systems Constitutional: Negative ENT: Other - POSITIVE - FOR NG TUBE PLACEMENT; NEGATIVE - DIFFICULTY SWALLOWING Negative: Chest Pain Negative: Shortness Of Breath Negative: Nausea Skin: Negative Neurological: Other - negative - dizziness Negative: Headache Psychological: Normal All Other Systems Reviewed And Are Negative: Yes Physical Exam - Summary Physical Exam Summary: Appearance: Well-appearing, no pain distress, well-nourished Skin: Warm, color reflects adequate perfusion, dry Head: Normal Head/Face inspection, atraumatic Eyes: Conjunctiva clear ENT: Normal inspection Neck: Supple, no nodes, no JVD, no swelling, healing surgical scar that is dry and intact Respiratory: Lungs clear, normal breath sounds, no respiratory distress Cardio: RRR, No murmur, pulses normal, brisk capillary refill Musculoskeletal: Strength Intact/ROM intact. Psychological: Normal Neuro: Alert, muscle tone normal, no focal deficit Triage Information Reviewed: Yes Vital Signs On Initial Exam: Initial Vitals Temp Pulse Resp BP Pulse Ox 98.3 F 70 16 162/93 97 06/29/19 18:45 06/29/19 18:45 06/29/19 18:45 06/29/19 18:45 06/29/19 18:45 Vital Signs Reviewed: Yes Procedures - Sedation Patient Received Moderate/Deep Sedation with Procedure: No Diagnostics - Vital Signs Vital Signs Temp Pulse Resp BP Pulse Ox 06/29/19 18:45 98.3 F 70 16 162/93 97 - Laboratory Lab Statement: Any lab studies that have been ordered have been reviewed, and results considered in the medical decision making process. - Radiology CXR Radiology Interpretation Completed By: Radiologist Summary of Radiographic Findings: A gastric tube is noted with the tip in the left upper quadrant in a prepyloric. position. IMPRESSION: NO ACTIVE CARDIOPULMONARY DISEASE. THIS REPORT WAS REVIEWED BY DR. NAJERA. Re-Evaluation - Re-Evaluation First Eval Re-Evaluation Time: 19:29 Change: Unchanged Comment: Patient is sitting upright in no distress. NG tube is in place. Dr. Dos Santos confirmed this with auscultation. X-ray to be obtained. EENT Course/Dx - Course Course Of Treatment: Patient is a 63 y/o M presenting to [facility] for NG tube placement. The patient had open repair of Zenker's diverticulum 06/23/[address] Dos Santos at [facility]. NG tube was placed and later removed. Today, 06/29/19, patient had Esophageal X-ray with Barium swallow. There was minimal extravasation of barium, and patient was subsequently directed to ED where Dr. Dos Santos came to place NG tube. Dr. Dos Santos completed procedure with no complications. The patient was stable pre and post procedure. Patient is sitting upright in no distress. NG tube is in place. Dr. Dos Santos confirmed this with auscultation. X-ray to be obtained. CXR showed agastric tube is noted with the tip in the left upper quadrant in a prepyloric position and no active cardiopulmonary disease. Patient was discharged to home and will follow up with Dr. Dos Santos as directed. - Diagnoses Provider Diagnoses: Encounter for nasogastric (NG) tube placement, H/O excision of Zenker's diverticulum - Provider Notifications Discussed Care Of Patient With: Yakov Dos Santos Time Discussed With Above Provider: 19:08 Instructed by Provider To: Other - 1907 - Dr. Dos Santos in ED, and patient's case was discussed. Dr. Dos Santos to place NG tube in ED. Discharge ED - Sign-Out/Discharge Documenting (check all that apply): Patient Departure - discharge - Discharge Plan Condition: Stable Disposition: HOME Patient Education Materials: Nasogastric Tube (DC) Referrals: En Silva MD [Primary Care Provider] - If Needed Yakov Dos Santos MD [Medical Doctor] - 2 Days Additional Instructions: Dr. Dos Santos replaced your NG tube without a problem. Dr. Dos Santos confirmed the placement by listening and with the xray confirmed the placement. Please follow up with Dr. Dos Santos next week as directed. Return to the ER for any new or worsening symptoms. - Billing Disposition and Condition Condition: STABLE Disposition: Home - Attestation Statements Document Initiated by Scribe: Yes Documenting Scribe: KAISER MONTANEZ Provider For Whom Scribe is Documenting (Include Credential): BIA NAJERA MD Scribe Attestation: KAISER Villarreal, scribed for BIA NAJERA MD on 07/14/19 at 2234. Scribe Documentation Reviewed: Yes Provider Attestation: The documentation as recorded by the scribe, KAISER MONTANEZ accurately reflects the service I personally performed and the decisions made by me, BIA NAJERA MD Status of Scribe Document: Viewed
[2019-06-29] MEDS ORDERED: Lidocaine 2% PF* 10 ML AMP INJ ONE (19:30)
[2019-06-29] MEDS ORDERED: Lidocaine 2% PF * 5 ML VIAL INJ ONE (19:30)
[2019-06-29 19:58] VITALS: BP 150/89
--- NOTE | 2019-06-29 20:04 | CONS ---
ER NOTE: DATE OF CONSULT: 06/29/19 - EMERGENCY DEPT HISTORY OF PRESENT ILLNESS: The patient is postop from an excision of the Zenker's diverticulum and cricopharyngeal myotomy via an open neck procedure. We had tied off the Zenker's diverticulum and then excised it, and during the myotomy, he got a very small esophageal opening and that was oversewn. He came to the office this morning. I pulled the NG tube out, and then later in the day , he got a Gastrografin swallow that unfortunately showed a little leak and I had him come to the emergency room for replacement of the NG tube. This was done without complications. His nose was sprayed with some lidocaine and magnetically placed tie was placed into his nasopharynx, pulled through. The Dobbhoff NG tube was placed and x-ray confirmed placement and the tie was tied and the NG tube was clipped in place and the stylet removed. [id number]/[facility] #: [id number] [facility] CENTERFernie
--- OUTSIDE RECORDS SUMMARY | 2019-06-29 20:12 | XMS REPORT | Continuity of Care Document ---
:1955 External Reference #:[id number] Author Name Yakov Dos Santos M.D. Address [address] [place] [address] Care Team Providers Name Role Phone En Silva M.D. - Family Medicine Care Team Information User Experience Architect Lobo Fuller M.D. - Gastroenterology Care Team Information User Experience Architect [phone] Problems Description No Information Available Social History Type Date Description Comments Sex Unknown Tobacco Use Start: Unknown Never Smoked Cigarettes Tobacco Use Start: Unknown Never Smoked Cigars Tobacco Use Start: Unknown Never Smoked A Pipe Smoking Status Reviewed: 05/24/19 Never Smoked A Pipe Smokeless Tobacco Never Used Smokeless Tobacco ETOH Use Currently occasionally consumes alcohol Tobacco Use Start: Unknown Patient has never smoked Allergies, Adverse Reactions, Alerts Description No Known Drug Allergies Medications Active Medications SIG Qnty Indications Ordering Provider Date Omeprazole Unknown 20mg Capsules DR Tamoxifen Citrate Unknown 20mg Tablets Multivitamin Adult every day Self Chewtabs Vitamin D3 Complete 1 by mouth every Self day Tablets Aspirin 1 by mouth every Self 81mg Chewtabs day Biotin as directed Self 5mg Capsules Fish Oil as directed Self 500mg Capsules Ginkoba 1 by mouth every Self 40mg Tablets day Zinc 1 by mouth every Self 30mg Capsules day Vitamin B12 1 by mouth every Self 100mcg day Tablets Clindamycin HCL Raggi DMD, 150mg Major Capsules Immunizations Description No Information Available Vital Signs Date Vital Result Comment 05/25/2019 11:04am BP Systolic 161 mmHg BP Diastolic 101 mmHg Heart Rate 66 /min Respiratory Rate 18 /min Weight 188.00 lb Weight 85.277 kg Height 68 inches 5'8" Height in cm's 172.7 cm BMI (Body Mass Index) 28.6 kg/m2 05/19/2019 10:13am Weight 188.00 lb Weight 85.277 kg Height 68 inches 5'8" Height in cm's 172.7 cm BMI (Body Mass Index) 28.6 kg/m2 Results Description No Information Available Procedures Date Code Description Status 05/19/2019 34841 Fiberoptic Laryngoscopy Completed Medical Devices Description No Information Available Encounters Description No Information Available Assessments Date Code Description Provider 05/25/2019 K22.5 Diverticulum of esophagus, acquired Yakov Dos Santos M.D. 05/25/2019 R13.14 Dysphagia, pharyngoesophageal phase Yakov Dos Santos M.D. 05/25/2019 K22.4 Dyskinesia of esophagus Yakov Dos Santos M.D. 05/19/2019 K22.5 Diverticulum of esophagus, acquired Yakov Dos Santos M.D. 05/19/2019 R13.14 Dysphagia, pharyngoesophageal phase Yakov Dos Santos M.D. Plan of Treatment No Information Available Functional Status Description No Information Available Mental Status Description No Information Available Referrals Description No Information Available
--- OUTSIDE RECORDS SUMMARY | 2019-06-29 20:12 | XMS REPORT | Continuity of Care Document ---
:1955 External Reference #:[id number] Author Name Yakov Dos Santos M.D. Address [address] [address] Care Team Providers Name Role Phone En Silva M.D. - Family Medicine Care Team Information Material Planning Analyst [phone] Lobo Fuller M.D. - Gastroenterology Care Team Information Material Planning Analyst [phone] Problems Description No Information Available Social History Type Date Description Comments Sex Unknown Tobacco Use Start: Unknown Never Smoked Cigarettes Tobacco Use Start: Unknown Never Smoked Cigars Tobacco Use Start: Unknown Never Smoked A Pipe Smoking Status Reviewed: 06/28/19 Never Smoked A Pipe Smokeless Tobacco Never Used Smokeless Tobacco ETOH Use Currently occasionally consumes alcohol Tobacco Use Start: Unknown Patient has never smoked Allergies, Adverse Reactions, Alerts Description No Known Drug Allergies Medications Active Medications SIG Qnty Indications Ordering Provider Date Ibuprofen 30 ml per NG tube 600ml Ramy Khanna 06/25/2019 100mg/5ML every 6 hours as MD Jose Antonio Suspension needed for pain Omeprazole Unknown 20mg Capsules Tamoxifen Citrate Unknown 20mg Tablets Multivitamin Adult every day Self Chewtabs Vitamin D3 Complete 1 by mouth every Self day Tablets Aspirin 1 by mouth every Self 81mg Chewtabs day Biotin as directed En Silva 5mg Capsules M.DRufus Fish Oil as directed Self 500mg Capsules Ginkoba 1 by mouth every Self 40mg Tablets day Zinc 1 by mouth every Self 30mg Capsules day Vitamin B12 1 by mouth every Self 100mcg day Tablets Clindamycin HCL Raggi DMD, 150mg Major Capsules Immunizations Description No Information Available Vital Signs Date Vital Result Comment 06/29/2019 8:40am Weight 188.00 lb Weight 85.277 kg Height 68 inches 5'8" Height in cm's 172.7 cm BMI (Body Mass Index) 28.6 kg/m2 05/25/2019 11:04am BP Systolic 161 mmHg BP Diastolic 101 mmHg Heart Rate 66 /min Respiratory Rate 18 /min Weight 188.00 lb Weight 85.277 kg Height 68 inches 5'8" Height in cm's 172.7 cm BMI (Body Mass Index) 28.6 kg/m2 Results Test Date Facility Test Result H/L Range Note Laboratory test 06/23/2019 [facility] Tisseel 4ML SEE RESULTS 1, 2 finding c/o Department of Laboratories [facility] <[place] [address] NOTE> [phone] DIVERTICULUM OF ESOPHAGUS, ACQUIRED, DYSPHAGIA, PH 2 SEE RESULTS BELOW [id number] TISSEEL TRANSFUSED 06/23/19 1201 Procedures Date Code Description Status 06/23/2019 00142 Diverticulectomy Of Hypopharynx Completed 06/23/2019 83540 Diverticulectomy Of Hypopharynx Completed 05/19/2019 33911 Fiberoptic Laryngoscopy Completed Medical Devices Description No Information Available Encounters Type Date Location Provider Dx Diagnosis Office Visit 05/25/2019 [place] Yakov De Paz K22.5 Diverticulum of 11:00a 09/15/07 Fariha Dos Santos esophagus, acquired R13.14 Dysphagia, pharyngoesophageal phase K22.4 Dyskinesia of esophagus Assessments Date Code Description Provider 06/29/2019 K22.5 Diverticulum of esophagus, acquired Yakov Dos Santos M.D. 06/29/2019 K22.3 Perforation of esophagus Yakov Dos Santos M.D. 06/29/2019 Z48.02 Encounter for removal of sutures Yakov Dos Santos M.D. 06/23/2019 K22.5 Diverticulum of esophagus, acquired Ramy Brady MD 06/23/2019 K22.5 Diverticulum of esophagus, acquired Yakov Dos Santos M.D. 05/25/2019 K22.5 Diverticulum of esophagus, acquired Yakov [...]
== END 2019-06-29 19:40 | disposition home or self-care (01) ==
LOC: ED 18:13
DX: Z46.59 Encounter for fitting and adjustment of other gastrointestinal appliance and device (principal); K21.9 Gastro-esophageal reflux disease without esophagitis
CPT/HCPCS: 71045; 99281; J2001